=== PATIENT | male | born 1970 | race Two or more races ===

== ENCOUNTER 2019-04-26 06:47 | Emergency (ER) | payer MEDICAID ==
[2019-04-26 06:56] VITALS: Ht 165.1 cm
[2019-04-26 08:39] VITALS: BP 148/80
== END 2019-04-26 08:39 | disposition home or self-care (01) ==
LOC: ED 06:47
DX: S29.8XXA Other specified injuries of thorax, initial encounter (principal); I10 Essential (primary) hypertension; E11.9 Type 2 diabetes mellitus without complications; W18.30XA Fall on same level, unspecified, initial encounter; Y93.89 Activity, other specified; Y92.89 Other specified places as the place of occurrence of the external cause; Y99.8 Other external cause status
CPT/HCPCS: J1885

== ENCOUNTER 2019-05-02 14:20 | Emergency (ER) | payer MEDICAID ==
[~2019-05-02] VITALS: Ht 165.1 cm; Wt 87.1 kg
[2019-05-02 14:39] VITALS: Ht 165.1 cm; Wt 87.1 kg
[2019-05-02 15:39] VITALS: BP 143/87
== END 2019-05-02 15:39 | disposition home or self-care (01) ==
LOC: ED 14:20
DX: S20.212D Contusion of left front wall of thorax, subsequent encounter (principal); I10 Essential (primary) hypertension; E11.9 Type 2 diabetes mellitus without complications; W18.39XD Other fall on same level, subsequent encounter